=== PATIENT | male | born 1965 | race Caucasian/White ===

== ENCOUNTER 2025-03-20 22:14 | Emergency (ER) | payer SELFPAY ==
--- NOTE | ~2025-03-20 | XR_ITS ---
XR chest 1V portable INDICATION:CP . REFERENCE: None FINDINGS: A single AP of the chest demonstrates normal heart size. Groundglass opacities are present bilaterally. There is no evidence of pneumothorax or pleural effusion. IMPRESSION: Groundglass opacity bilaterally, left greater than right. Reviewed, dictated and finalized at location S.
--- NOTE | ~2025-03-20 | CT_ITS ---
CTA CHEST CLINICAL HISTORY: cp and syncope . COMPARISON: 03/20/2025 TECHNIQUE: Helical CTA performed from thoracic inlet to upper abdomen 100 mL Omnipaque 350 Coronal, sagittal reformats. Multiplanar MIPS CT images acquired with automatic exposure control for dose reduction DLP: 353 mGy-cm FINDINGS: Pulmonary arteries: No PE. Thoracic Aorta: No dissection or aneurysm. Heart/pericardium: Coronary artery calcifications. RV/LV ratio: Normal. Lungs/Pleura: Mild mosaic attenuation. Mild interlobular septal thickening. Tracheobronchial tree: Mild bibasilar mucous plugging. Nodes: No enlarged nodes. Small hilar nodes. Subcarinal calcifications. Bones: No acute bony abnormality. Soft tissues: Unremarkable. Visualized upper abdomen: Unremarkable. IMPRESSION: 1. Mild interstitial pulmonary edema and/or pneumonitis. 2. No PE. Reviewed, dictated and finalized at location R.
--- NOTE | ~2025-03-20 | CT_ITS ---
CT HEAD NON-CONTRAST Clinical History: syncope Comparison: None Technique: Unenhanced axial images skull base to vertex Coronal, sagittal reformats CT images acquired with automatic exposure control for dose reduction DLP: 605 mGy-cm Findings: Sulci, ventricles: Unremarkable. No intracerebral hemorrhage. No evidence acute territorial infarct. No mass effect, midline shift. Bony calvarium intact. Visualized paranasal sinuses: Clear. Mastoid air cells: Clear. IMPRESSION: 1. No acute intracranial findings. Reviewed, dictated and finalized at location R.
[2025-03-20 22:23] VITALS: BP 128/82; PULSE 81; RESP 22; O2SAT 96
--- NOTE | 2025-03-20 22:24 | ECG_ITS ---
Test Date: 2025-03-20 22:47:17 Measurements Intervals [place] Rate: 77 P: 38 HI: 158 QRS: 23 QRSD: 86 T: 56 QT: 394 QTc: 446 Interpretive Statements SINUS RHYTHM ANTERIOR MYOCARDIAL INFARCTION , OF INDETERMINATE AGE [40+ ms Q WAVE AND/OR ST/T ABNORMALITY IN V3/V4] No previous ECG available for comparison Electronically Signed On 03-21-2025 11:59:36 CDT by Daron Pratt M.D.
[2025-03-20 22:25] VITALS: BP 128/82; PULSE 80; RESP 20; TEMP 36.8; O2SAT 96
[2025-03-20 22:33] VITALS: PULSE 79
[2025-03-20 23:00] VITALS: BP 124/88; PULSE 77; RESP 23; O2SAT 97
[2025-03-20 23:30] VITALS: BP 134/78; PULSE 82; RESP 18; O2SAT 99
[2025-03-20 23:48] LABS: Hematocrit 38.7 % (42.0-52.0); Hemoglobin 12.7 g/dL (14.0-18.0); Immature Granulocyte Percent A 0.3 % (0-0.5); Lymphocytes Absolute Auto 3.56 K/mm3 (0.9-3.2); Mean Corpuscular HGB Conc 32.8 g/dl (32-36); Mean Corpuscular Hemoglobin 31.4 pg (26-34); Mean Corpuscular Volume 95.8 fl (80-100); Nucleated Red Blood Cells Absolute Auto 0.000 K/mm3 (0.0-0.012); Nucleated Red Blood Cells Perc 0.0 % (0.0-0.2); Platelet Count Result 267 k/mm3 (150-375); Red Blood Count 4.04 M/mm3 (4.6-6.20); White Blood Count 10.5 K/mm3 (4.5-10.0)
[2025-03-21] VITALS: BP 118/78; PULSE 72; RESP 17; O2SAT 93
[2025-03-21 00:02] LABS: INR 1.0; Prothrombin Time 12.9 Seconds (11.1-14.7)
[2025-03-21 00:03] LABS: Alanine Aminotransferase 18 U/L (6-50); Albumin Level 4.5 g/dL (3.5-5.1); Alkaline Phosphatase 63 U/L (38-126); Anion Gap 11 mmol/L (4-12); Aspartate Amino Transferase 33 U/L (17-59); Bilirubin,Total 0.4 mg/dL (0.2-1.3); Blood Urea Nitrogen 17 mg/dL (9-20); Calcium 8.6 mg/dL (8.4-10.2); Carbon Dioxide 24 mmol/L (22-30); Chloride 102 mmol/L (98-107); Estimated CRCL calculation 68 ml/min; Estimated Glomerular Filt Rate > 60; Glucose 78 mg/dL (65-110); Lipase 64 U/L (23-300); Partial Thromboplastin Time 26.8 Seconds (22.3-36.8); Potassium 4.0 mmol/L (3.4-5.0); Sodium 137 mmol/L (137-145); Total Protein 7.2 g/dL (6.3-8.2)
[2025-03-21 00:13] LABS: Troponin I 0.028 ng/mL (0.000-0.034)
--- NOTE | 2025-03-21 00:30 | ED.CHESTPAIN ---
HPI - Chest Pain General Chief Complaint: Chest Pain <ALEXANDRA Hughes - Last Filed: 03/21/25 03:51> Stated Complaint: chest pain <ALEXANDRA Hughes Last Filed: 03/21/25 03:51> Time Seen by Provider: 03/20/25 22:25 <ALEXANDRA Hughes - Last Filed: 03/21/25 03:51> History of Present Illness HPI narrative: 59-year-old male presenting from home by EMS complaining of chest pain. He is here with his partner. Partner states patient collapsed in their backyard. Partner attempted chest compressions and patient immediately regained consciousness after less than 1 minute. Initial assessment was limited as patient was lethargic, he was able to state that he has chest pain that does not radiate and that he feels as if his heart is racing. patient's partner endorses alcohol intake prior to syncopal episode. Unable to ascertain the exact quantity of alcohol consumed. Patient has a significant cardiac history and is undergoing a CABG and mitral valve replacement on Sunday by Dr. Ross at [facility]. history of COPD and long-term tobacco use. Patient's partner reports cutting down on smoking recently. <ALEXANDRA Hughes - Last Filed: 03/21/25 03:51> Related Data Allergies/Adverse Reactions: Allergies Allergy/AdvReac Type Severity Reaction Status Date / Time No Known Allergies Allergy Verified 03/20/25 22:34 <ALEXANDRA Hughes Last Filed: 03/21/25 03:51> Review of Systems Review of Systems: All systems reviewed & are unremarkable except as noted in HPI and below <ALEXANDRA Hughes - Last Filed: 03/21/25 03:51> Exam Narrative: GENERAL: lethargic. Mild distress. HEAD: Normocephalic, atraumatic. EYES: PERRLA and EOMI. ENT: Nares clear, no rhinorrhea or epistaxis. Mucous membranes moist. Oropharynx without tonsillar hypertrophy exudate or other lesions. Bilateral TMs pearly steel non-bulging NECK: Supple. No adenopathy or masses. No carotid bruits or JVD CHEST: Clear to auscultation. No respiratory distress. No wheezes rales or rhonchi HEART: Regular rate and rhythm. Mitral murmur heard. Normal peripheral pulses. ABDOMEN: Soft, nontender, nondistended, normal active bowel sounds. EXTREMITIES: Normal range of motion. No edema. SKIN: Warm, diaphoretic, no rash. NEURO: No focal deficits. Alert and oriented x3. PSYCH: Normal mood and affect <ALEXANDRA Hughes - Last Filed: 03/21/25 03:51> Course Course Emergency Course: Patient care signed over by previous provider pending transfer. CT angiography reviewed shows no PE. Patient transferred at approximately 6:00 a.m. and left the facility without any further issues. <Zacarias Castellanos MD - Last Filed: 03/21/25 06:42> Vital Signs Vital signs: Vital Signs Pulse Rate 81 03/20/25 22:23 Respiratory Rate 22 H 03/20/25 22:23 Blood Pressure 128/82 03/20/25 22:23 Pulse Oximetry 96 03/20/25 22:23 Temperature 36.8 C 03/21/25 06:17 Pulse Rate 84 03/21/25 06:17 Respiratory Rate 18 03/21/25 06:17 Blood Pressure 103/64 03/21/25 06:17 Pulse Oximetry 96 03/21/25 06:17 Oxygen Delivery Room Air 03/20/25 22:25 <ALEXANDRA Hughes - Last Filed: 03/21/25 03:51> Vital Signs Pulse Rate 81 03/20/25 22:23 Respiratory Rate 22 H 03/20/25 22:23 Blood Pressure 128/82 03/20/25 22:23 Pulse Oximetry 96 03/20/25 22:23 Temperature 36.8 C 03/21/25 06:17 Pulse Rate 84 03/21/25 06:17 Respiratory Rate 18 03/21/25 06:17 Blood Pressure 103/64 03/21/25 06:17 Pulse Oximetry 96 03/21/25 06:17 Oxygen Delivery Room Air 03/20/25 22:25 <Zacarias Castellanos MD - Last Filed: 03/21/25 06:42> MDM - Chest Pain MDM Narrative Medical decision making narrative: 59-year-old male presenting from home by EMS complaining of chest pain. He is here with his partner. Partner states patient collapsed in their backyard. Partner attempted chest compressions and patient immediately regained consciousness after less than 1 minute. My initial assessment was limited as patient was lethargic, he was able to state that he has chest pain that does not radiate and that he feels as if his heart is racing. patient's partner endorses alcohol intake prior to syncopal episode. Unable to ascertain the exact quantity of alcohol consumed. Patient has a significant cardiac history and is undergoing a CABG and mitral valve replacement on Sunday by Dr. Ross at [facility]. history of COPD and long-term tobacco use. Patient's partner reports cutting down on smoking recently. A chest pain workup was ordered with first and second Troponin unchanged but WNL at 0.028ng/mL and EKG showed no acute ischemic changes. CBC showed mild leukocytosis and anemia. Do not have previous labs to compare to. Other labs WNL. Chest x-ray showed groundglass opacity bilaterally, left greater than right. I do not have previous imaging to compare it to. He has clear lung sounds in all maza, denies pleuritic chest pain, and endorses no fevers or recent illness. He does have a cough which partner endorses is at baseline. Could not rule out PE and with new onset cp and syncope ordered a CTA. Non-con CT due to uncertainty of head injury with syncopal episode. It demonstrated no acute hemorrhage, hydrocephalus, or herniation. Contacted cardiothoracic surgery at [facility] for recommendations. I spoke with Dr. Shelby who recommended transfer to [facility] under hospitalist service for monitoring until his surgery on Sunday. Patient will be on his PCP, Dr. Olsen's service. Upon reassessment, patient states he no longer has chest pain and felt good enough to go home; however I informed him of decision to transfer to [facility] and he was agreeable. Patient is stable and resting comfortably. Care transferred to Dr. Castellanos at shift change. Pending transfer. CTA pending. <ALEXANDRA Hughes - Last Filed: 03/21/25 03:51> Lab Data Result diagrams: 03/20/25 23:42 03/20/25 23:42 <ALEXANDRA Hughes - Last Filed: 03/21/25 03:51> Labs: Lab Results 03/20/25 03/21/25 Range/Units 23:42 02:14 WBC 10.5 H (4.5-10.0) K/mm3 RBC 4.04 L (4.6-6.20) M/mm3 Hgb 12.7 L (14.0-18.0) g/dL Hct 38.7 L (42.0-52.0) % MCV 95.8 (80-100) fl MCH 31.4 (26-34) pg MCHC 32.8 (32-36) g/dl RDW 12.0 (11.5-14.5) % Plt Count 267 (150-375) k/mm3 MPV 8.4 (7.4-10.4) fl Immature Gran % (Auto) 0.3 (0-0.5) % Neut % (Auto) 53.9 (45.5-73.1) % Lymph % (Auto) 34.1 (18.3-44.2) % [place] % (Auto) 8.1 (2.6-8.5) % Eos % (Auto) 2.8 (0-4.4) % Baso % (Auto) 0.8 (0.2-1.2) % Lymph # (Auto) 3.56 H (0.9-3.2) K/mm3 [place] # (Auto) 0.9 H (0.1-0.6) K/mm3 Eos # (Auto) 0.3 (0-0.3) K/mm3 Baso # (Auto) 0.1 (0.0-0.1) K/mm3 Abs Immat Gran (auto) 0.03 (0.00-0.031) K/mm3 Absolute Neuts (auto) 5.6 (1.3-6.7) K/mm3 Absolute Nucleated RBC 0.000 (0.0-0.012) K/mm3 Nucleated RBC % 0.0 (0.0-0.2) % PT 12.9 (11.1-14.7) Seconds INR 1.0 APTT 26.8 (22.3-36.8) Seconds Sodium 137 (137-145) mmol/L Potassium 4.0 (3.4-5.0) mmol/L Chloride 102 (98-107) mmol/L Carbon Dioxide 24 (22-30) mmol/L Anion Gap 11 (4-12) mmol/L BUN 17 (9-20) mg/dL Creatinine 0.96 (0.7-1.3) mg/dL Estim Creat Clear Calc 68 ml/min Estimated GFR > 60 (59 - ) Glucose 78 (65-110) mg/dL Calcium 8.6 (8.4-10.2) mg/dL Total Bilirubin 0.4 (0.2-1.3) mg/dL AST 33 (17-59) U/L ALT 18 (6-50) U/L Alkaline Phosphatase 63 (38-126) U/L Troponin I 0.028 0.028 (0.000-0.034) ng/mL Total Protein 7.2 (6.3-8.2) g/dL Albumin 4.5 (3.5-5.1) g/dL Lipase 64 (23-300) U/L <ALEXANDRA Hughes - Last Filed: 03/21/25 03:51> Lab Results 03/20/25 03/21/25 Range/Units 23:42 02:14 WBC 10.5 H (4.5-10.0) K/mm3 RBC 4.04 L (4.6-6.20) M/mm3 Hgb 12.7 L (14.0-18.0) g/dL Hct 38.7 L (42.0-52.0) % MCV 95.8 (80-100) fl MCH 31.4 (26-34) pg MCHC 32.8 (32-36) g/dl RDW 12.0 (11.5-14.5) % Plt Count 267 (150-375) k/mm3 MPV 8.4 (7.4-10.4) fl Immature Gran % (Auto) 0.3 (0-0.5) % Neut % (Auto) 53.9 (45.5-73.1) % Lymph % (Auto) 34.1 (18.3-44.2) % Chester % (Auto) 8.1 (2.6-8.5) % Eos % (Auto) 2.8 (0-4.4) % Baso % (Auto) 0.8 (0.2-1.2) % Lymph # (Auto) 3.56 H (0.9-3.2) K/mm3 [place] # (Auto) 0.9 H (0.1-0.6) K/mm3 Eos # (Auto) 0.3 (0-0.3) K/mm3 Baso # (Auto) 0.1 (0.0-0.1) K/mm3 Abs Immat Gran (auto) 0.03 (0.00-0.031) K/mm3 Absolute Neuts (auto) 5.6 (1.3-6.7) K/mm3 Absolute Nucleated RBC 0.000 (0.0-0.012) K/mm3 Nucleated RBC % 0.0 (0.0-0.2) % PT 12.9 (11.1-14.7) Seconds INR 1.0 APTT 26.8 (22.3-36.8) Seconds Sodium 137 (137-145) mmol/L Potassium 4.0 (3.4-5.0) mmol/L Chloride 102 (98-107) mmol/L Carbon Dioxide 24 (22-30) mmol/L Anion Gap 11 (4-12) mmol/L BUN 17 (9-20) mg/dL Creatinine 0.96 (0.7-1.3) mg/dL Estim Creat Clear Calc 68 ml/min Estimated GFR > 60 (59 - ) Glucose 78 (65-110) mg/dL Calcium 8.6 (8.4-10.2) mg/dL Total Bilirubin 0.4 (0.2-1.3) mg/dL AST 33 (17-59) U/L ALT 18 (6-50) U/L Alkaline Phosphatase 63 (38-126) U/L Troponin I 0.028 0.028 (0.000-0.034) ng/mL Total Protein 7.2 (6.3-8.2) g/dL Albumin 4.5 (3.5-5.1) g/dL Lipase 64 (23-300) U/L <Zacarias Castellanos MD - Last Filed: 03/21/25 06:42> Discharge Plan Discharge Clinical Impression: Cardiac disease Chest pain Qualifiers: Chest pain type: unspecified Qualified Code(s): R07.9 - Chest pain, unspecified Syncope Qualifiers: Syncope type: unspecified Qualified Code(s): R55 - Syncope and collapse <ALEXANDRA Hughes - Last Filed: 03/21/25 03:51> Patient Disposition: Acute Care Hospital <ALEXANDRA Hughes - Last Filed: 03/21/25 03:51> Condition: Stable <ALEXANDRA Hughes - Last Filed: 03/21/25 03:51> Patient Language: Chinese <ALEXANDRA Hughes - Last Filed: 03/21/25 03:51> Follow-up/Referrals: UNKNOWN,DOCTOR [Primary Care Provider] <ALEXANDRA Hughes - Last Filed: 03/21/25 03:51> Quality HEART score for chest pain patients History: moderately suspicious <ALEXANDRA Hughes - Last Filed: 03/21/25 03:51> ECG: normal <ALEXANDRA Hughes - Last Filed: 03/21/25 03:51> Age: > 45 and < 65 years <ALEXANDRA Hughes - Last Filed: 03/21/25 03:51> Risk factors: 1 or 2 risk factors <ALEXANDRA Hughes - Last Filed: 03/21/25 03:51> Troponin: < or = to 1x normal limit <ALEXANDRA Hughes - Last Filed: 03/21/25 03:51> Heart score: 3 <ALEXANDRA Hughes - Last Filed: 03/21/25 03:51> 3 <Zacarias Castellanos MD - Last Filed: 03/21/25 06:42>
[2025-03-21 01:33] VITALS: BP 108/57; PULSE 77; RESP 18; O2SAT 90
--- NOTE | 2025-03-21 02:30 | ECG_ITS ---
Test Date: 2025-03-21 02:22:27 Measurements Intervals [place] Rate: 73 P: 39 NM: 165 QRS: 11 QRSD: 82 T: 30 QT: 399 QTc: 441 Interpretive Statements SINUS RHYTHM NONSPECIFIC T-WAVE ABNORMALITY Compared to ECG 03/20/2025 22:47:17 no change compared to prior EKG Electronically Signed On 03-21-2025 12:02:20 CDT by Daron Pratt M.D.
[2025-03-21 02:45] VITALS: BP 107/60; PULSE 70; RESP 19; O2SAT 94
[2025-03-21 02:53] LABS: Troponin I 0.028 ng/mL (0.000-0.034)
[2025-03-21 03:08] VITALS: BP 115/70; PULSE 67; RESP 19; O2SAT 92
[2025-03-21 05:42] VITALS: BP 103/64; PULSE 84; RESP 18; TEMP 36.8; O2SAT 96
--- NOTE | 2025-03-21 06:13 | PC.NURSE ---
This RN tried to call pts partner. No answer
--- NOTE | 2025-03-21 06:14 | PC.NURSE ---
report called to [facility]. Report given to Gerda HDZ.
[2025-03-21 06:17] VITALS: BP 103/64; PULSE 84; RESP 18; TEMP 36.8; O2SAT 96
== END 2025-03-21 06:22 | disposition short-term general hospital (02) ==
PROVIDERS: Student in an Organized Health Care Education/Training Program
DX: R07.9 Chest pain, unspecified (principal); R55 Syncope and collapse; I51.9 Heart disease, unspecified; J44.9 Chronic obstructive pulmonary disease, unspecified; F17.200 Nicotine dependence, unspecified, uncomplicated; R94.31 Abnormal electrocardiogram [ECG] [EKG]
CPT/HCPCS: 36415; 70450; 71045; 71275; 80053; 83690; 84484; 85025; 85610; 85730; 93005; 99285; Q9967